=== PATIENT | male | born 2000 | race Caucasian/White ===

== ENCOUNTER 2020-02-06 00:18 | Emergency (ER) | payer BC, SELFPAY ==
[2020-02-06 00:19] VITALS: BP 140/94; PULSE 90; RESP 18; TEMP 36.7; O2SAT 98; BMI 24.6
--- NOTE | 2020-02-06 00:45 | ED.DCSUM_ITS ---
History of Present Illness Chief Complaint: Laceration Informant: Patient Narrative: Patient is a 19-year-old previously healthy male who presents to the emergency department for laceration to his lip. He was playing hockey earlier today when the puck struck him in the lower lip. He had some bleeding present. This was controlled with bandage applied by his warehouse trainer. He denies any loose teeth. He feels like the cut did extend through the entire lip. Denies any headache or vision changes. No loss of consciousness. Denies any other injury. No neck pain. He states he is up-to-date on immunizations. He denies any systemic symptoms. He is not on any anticoagulation medications. Past Medical History - Allergies and Home Meds Allergies/Adverse Reactions: Allergies No Known Allergies Allergy (Verified 02/06/20 00:21) Primary Care Physician: TONI VALENTE [Other] - 5 Days for suture removal Prior records reviewed: Yes Past Medical History: None Smoking Status: Never smoker Drugs: None Review of Systems All systems negative except as indicated General: Denies: Chills, Fever Eyes: Denies: Visual changes - bilaterally, Diplopia ENT: Denies: Rhinorrhea, Sore throat Cardiovascular: Denies: Chest pain Respiratory: Denies: Dyspnea, Cough, Dyspnea on exertion Gastrointestinal: Denies: Abdominal pain, Nausea, Vomiting Genitourinary: Denies: Dysuria, Hematuria, Frequency Musculoskeletal: Denies: Back pain, Extremity Pain Skin: Reports: Wounds. Denies: Rash Neurological: Denies: Headache, Weakness, Numbness Hematologic: Denies: Easy bruising, Easy bleeding Physical Exam Vital Signs/Narrative: Vital Signs Temp Pulse Resp BP Pulse Ox 02/06/20 00:19 98.0 F 90 18 140/94 H 98 Inital Vital Signs reviewed: Yes General: Well nourished, Well developed, No Acute Distress Head: Normocephalic Eyes: Perrl, EOMI ENT: Moist mucous membranes, No rhinorrhea, - - Lower lip has a 1 cm V-shaped laceration present. This does appear to go through and through although the inside of the mouth extent is minimal. No active bleeding. This does not involve the vermilion border. Neck: Supple, Nontender Cardiovascular: Regular rate, Regular rhythm, No murmurs Respiratory: No distress, CTA bilaterally, Chest nontender Abdomen: Soft, Nondistended Back: Negative for: Spinal tenderness Extremities: Nontender, No edema Skin: Normal color, No rash Neurological: Alert, Oriented x3, Cranial nerves II-XII grossly intact, Normal Strength, Normal Sensation Psychological: Normal affect, Normal Mood Diagnostic/Tx/Re-eval - Medical Decision Making Patient presents to the emerge department for laceration to his lower lip. This does appear to go through and through. No tooth trauma identified. No issues with airway. He is nontoxic-appearing. Let is applied and will repair with sutures. The mucosal surface did not gape and was well approximated without any repair. 2 sutures were used to repair the external lip. He will be discharged home in stable condition. Warning signs and symptoms for which to return to the ED including developing any evidence of infection are reviewed. He otherwise needs the sutures removed in 5 to 7 days. Scar precautions were discussed with him including keeping out of sun as well as vitamin E lotion once the sutures are removed. He understands and is agreeable this plan. Patient discharged home in stable condition. Procedures Procedure(s): Laceration repair: Informed consent was obtained before procedure started. The appropriate timeout was taken. The area was prepped and draped in the usual sterile fashion. Local anesthesia was achieved using LET. The wound was copiously irrigated with normal saline. 2 6-0 Ethilon simple interrupted sutures were placed. The through and through laceration was not gaped on the mucosal surface. No repair needed. Antibiotic ointment was applied to the area and anticipatory guidance, as well as standard post procedure care, was explained. Return precautions are given. The patient tolerated the procedure well without any apparent complications. Follow-up visit set for suture removal and evaluation of laceration. ED Disposition - Plan for ED Patient: Disposition: Home or Assisted Living Diagnosis: Lip laceration Instructions: ED Laceration Mouth, ED Laceration Scalp Sutures or Michelle Referrals: TONI VALENTE [Other] - 5 Days for suture removal
[2020-02-06] MEDS: Lidocaine/Epi/Tetracaine 50 ML 1 APPLIC TOPICAL (01:00)
[2020-02-06 01:56] VITALS: PULSE 72; RESP 14
== END 2020-02-06 01:57 | disposition home or self-care (01) ==
PROVIDERS: Emergency Provider Emergency Medicine
DX: S01.511A Laceration without foreign body of lip, initial encounter (principal); Y93.22 Activity, ice hockey
CPT/HCPCS: 12011; 99282